=== PATIENT | male | born 2000 | race Caucasian/White ===

== ENCOUNTER 2020-11-01 15:05 | Emergency (ER) | payer OTHER ==
[~2020-11-01] VITALS: Ht 167.6 cm; Wt 68.5 kg
[2020-11-01 15:35] VITALS: BP 118/69
--- NOTE | 2020-11-01 15:39 | NUR ---
PT TO LOBBY.
--- NOTE | 2020-11-01 15:45 | NUR ---
NO NURSING INTERVENTIONS DONE, NO COMPLETE ASSESSMENT NEEDED.
[2020-11-01] MEDS ORDERED: IBUP-1842 PO (16:23)
[2020-11-01] MEDS ORDERED: METH-1681 PO (16:23)
[2020-11-01 16:32] VITALS: BP 116/62
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
== END 2020-11-01 16:32 | disposition home or self-care (01) ==
LOC: MED 15:05
DX: S16.1XXA Strain of muscle, fascia and tendon at neck level, initial encounter (principal); S39.012A Strain of muscle, fascia and tendon of lower back, initial encounter; Z79.899 Other long term (current) drug therapy; V89.2XXA Person injured in unspecified motor-vehicle accident, traffic, initial encounter; Y93.89 Activity, other specified; Y92.89 Other specified places as the place of occurrence of the external cause; Y99.8 Other external cause status
CPT/HCPCS: 99283